=== PATIENT | female | born 2000 | race Caucasian/White ===

== ENCOUNTER → 2020-10-23 | Outpatient (CLI) | payer BC | LOC: US 07:34 | DX: N39.0 Urinary tract infection, site not specified (principal); R10.9 Unspecified abdominal pain; K59.00 Constipation, unspecified; R10.2 Pelvic and perineal pain | CPT/HCPCS: 76700; 76856 ==

== ENCOUNTER → 2020-11-27 | Outpatient (CLI) | payer BC ==
[2020-11-27 08:07] LABS: HEMOGLOBIN 14.6 gm/dl (12.3-15.3); RED BLOOD COUNT 4.64 M/UL (4.00-5.10); WHITE BLOOD COUNT 7.2 K/UL (4.5-11.0)
[2020-11-27 08:36] LABS: BUN/CREATININE RATIO 12 (0-10)
== END ==
LOC: CT 07:13
PROVIDERS: Nurse Practitioner Family
DX: R10.84 Generalized abdominal pain (principal); R39.9 Unspecified symptoms and signs involving the genitourinary system; R93.5 Abnormal findings on diagnostic imaging of other abdominal regions, including retroperitoneum; K59.00 Constipation, unspecified
CPT/HCPCS: 36415; 74160; 80053; 80061; 82150; 82607; 82728; 83540; 83550; 83690; 84439; 84443; 85025; Q9967

== ENCOUNTER → 2021-01-23 | Outpatient (CLI) | payer BC ==
[2021-01-24 11:13] LABS: CREATININE, URINE 180.7 mg/dL (Not Estab.); MICROALB/CREAT RATIO <2 (0-29)
== END ==
LOC: LAB 08:20
PROVIDERS: Internal Medicine Nephrology
DX: N13.722 Vesicoureteral-reflux with reflux nephropathy without hydroureter, bilateral (principal)
CPT/HCPCS: 81001; 82043; 82570; 84156

== ENCOUNTER → 2021-07-02 | Outpatient (CLI) | payer BC, OTHER ==
[2021-07-02 09:49] LABS: BUN/CREATININE RATIO 12 (0-10)
[2021-07-03 11:14] LABS: CREATININE, URINE 58.1 mg/dL (Not Estab.); MICROALB/CREAT RATIO <5 (0-29)
== END ==
LOC: LAB 09:05
PROVIDERS: Internal Medicine Nephrology
DX: N39.0 Urinary tract infection, site not specified (principal); N28.9 Disorder of kidney and ureter, unspecified
CPT/HCPCS: 36415; 80048; 81001; 82043; 82570; 87086

== ENCOUNTER 2021-10-06 16:46 | Inpatient (IN) | payer BC, OTHER ==
[~2021-10-06] VITALS: Ht 154.9 cm; Wt 49.4 kg
[2021-10-06 17:23] LABS: HEMOGLOBIN 10.3 gm/dl (12.3-15.3); RED BLOOD COUNT 3.69 M/UL (4.00-5.10); WHITE BLOOD COUNT 9.9 K/UL (4.5-11.0)
[2021-10-06] MEDS ORDERED: PRENATAL VITAM1 EAC5 PO (18:40)
[2021-10-08 06:21] LABS: HEMOGLOBIN 8.6 gm/dl (12.3-15.3)
[2021-10-09] MEDS ORDERED: IBUPROFEN800 MG PO (10:05)
[2021-10-09] MEDS ORDERED: HYDROCODON-ACE1 EAC4 PO (10:05)
[2021-10-09] MEDS ORDERED: COLACE 100MG C100 MG PO (10:05)
[2021-10-09] MEDS ORDERED: FERROCITE324 MG PO (10:07)
== END 2021-10-09 13:03 | disposition home or self-care (01) | DRG 806 ==
LOC: GENOP 16:46 → OB 17:07
PROVIDERS: ADMIT Obstetrics & Gynecology
PROC: 10E0XZZ Delivery of Products of Conception, External Approach (ICD-10-PCS; principal; 2021-10-07)
PROC: 0UQMXZZ Repair Vulva, External Approach (ICD-10-PCS; 2021-10-07)
PROC: 10907ZC Drainage of Amniotic Fluid, Therapeutic from Products of Conception, Via Natural or Artificial Opening (ICD-10-PCS; 2021-10-07)
PROC: 3E033VJ Introduction of Other Hormone into Peripheral Vein, Percutaneous Approach (ICD-10-PCS; 2021-10-07)
PROC: 4A1HXCZ Monitoring of Products of Conception, Cardiac Rate, External Approach (ICD-10-PCS; 2021-10-07)
PROC: 3E0234Z Introduction of Serum, Toxoid and Vaccine into Muscle, Percutaneous Approach (ICD-10-PCS; 2021-10-07)
DX: O23.13 Infections of bladder in pregnancy, third trimester (principal); D62 Acute posthemorrhagic anemia; Z37.0 Single live birth; Z20.822 Contact with and (suspected) exposure to COVID-19; Z3A.38 38 weeks gestation of pregnancy; Z87.440 Personal history of urinary (tract) infections; Z90.49 Acquired absence of other specified parts of digestive tract; O70.0 First degree perineal laceration during delivery; O99.02 Anemia complicating childbirth; R33.9 Retention of urine, unspecified; O90.89 Other complications of the puerperium, not elsewhere classified; Z23 Encounter for immunization
CPT/HCPCS: 36415; 81001; 82800; 85014; 85018; 85025; J0696; J2590; J7120